=== PATIENT | female | born 1980 | race Caucasian/White ===

== ENCOUNTER 2018-10-19 20:06 | Emergency (ER) | payer BC ==
[2018-10-19 20:12] VITALS: BP 140/92
--- NOTE | 2018-10-19 20:37 | XRAY Report ---
Reason: Injury/a metal sprinler fell onto L foot. Procedure Date: 10/19/2018 Accession Number: [id number] / [id number] Procedure: XR - Foot 3 View LT CPT Code: FULL RESULT: EXAM: LEFT FOOT RADIOGRAPHY EXAM DATE: 10/19/2018 08:24 PM. CLINICAL HISTORY: Injury/a metal sprinler fell onto L foot. COMPARISON: None. TECHNIQUE: 3 views. FINDINGS: Bones: No acute fractures or suspicious bone lesions. Joints: No subluxations. Soft Tissues: Unremarkable. IMPRESSION: No acute radiographic abnormalities. RADIA
--- NOTE | 2018-10-19 20:52 | ED Physician Documentation ---
PD HPI LOWER EXT INJURY - Stated complaint Stated Complaint: FOOT INJURY - Chief complaint Chief Complaint: Laceration - History obtained from History obtained from: Patient - History of Present Illness PD HPI LOW EXT INJURY LOCATION: Left, Foot Type of injury: Blunt / blow Where injury occurred: Home Timing - onset: Today Severity Comments: moderate Improved by: Rest, Ice, Immobilization Worsened by: Moving Associated symptoms: Swelling Contributing factors: No: Anticoagulated Similar symptoms before: Has not had sx before Recently seen: Not recently seen Review of Systems Constitutional: denies: Fever Eyes: denies: Discharge Cardiac: denies: Chest pain / pressure GI: denies: Abdominal Pain Musculoskeletal: reports: Extremity pain Neurologic: denies: Head injury PD PAST MEDICAL HISTORY - Past Medical History Past Medical History: Yes Cardiovascular: None Respiratory: None Neuro: None Endocrine/Autoimmune: None GI: None EQUIPMENT TECHNICIAN: None : None HEENT: None Psych: None Musculoskeletal: None Derm: None - Past Surgical History Past Surgical History: Yes HEENT: Tonsil/Adenoidectomy - Allergies Allergies/Adverse Reactions: Allergies Allergy/AdvReac Type Severity Reaction Status Date / Time Sulfa (Sulfonamide Allergy Hives Verified 10/19/18 20:09 Antibiotics) - Social History Does the pt smoke?: No Smoking Status: Never smoker Does the pt drink ETOH?: Yes ETOH Use: Wine Does the pt have substance abuse?: No - Immunizations Immunizations are current?: Yes - POLST Patient has POLST: No PD ED PE NORMAL - General General: Alert and oriented X 3, No acute distress - HEENT HEENT: Atraumatic, PERRL, EOMI, Ears normal - Derm Derm: Normal color - Neuro Neuro: Alert and oriented X 3 - Psych Psych: Normal affect PD ED PE EXPANDED - Extremities FRANCINE LE visual: 1 - tenderness (Mild abrasion, tenderness to palpation with bruising. No crepitus. Normal dorsalis pedis pulse and normal cap refill. No tenderness of the ankle or proximal fibular head) Results - Vitals Vitals: Vital Signs - 24 hr 10/19/18 20:09 Temperature 36.2 C L Heart Rate 99 Respiratory 16 Rate Blood Pressure 140/92 H O2 Saturation 98 Oxygen O2 Source Room air - Rads (name of study) foot XR Radiology: Final report received, See rad report PD MEDICAL DECISION MAKING - ED course ED course: No acute fracture on x-ray, the patient reports being able to bear weight and declines crutches. The patient appears appropriate for discharge and conservative outpatient management I advised follow-up with primary care. I discussed warning signs and recommended returning for any worsening or any concerns Departure - Departure Disposition: 01 Home, Self Care Clinical Impression: Foot contusion Qualifiers: Encounter type: initial encounter Laterality: unspecified laterality Qualified Code(s): S90.30XA - Contusion of unspecified foot, initial encounter Condition: Good Instructions: ED Contusion Foot Comments: Please follow-up with primary care for recheck. Please return to the emergency department immediately for any worsening or any concerns
== END 2018-10-19 20:56 | disposition home or self-care (01) ==
LOC: ED 20:06
DX: S90.30XA Contusion of unspecified foot, initial encounter (principal); W01.0XXA Fall on same level from slipping, tripping and stumbling without subsequent striking against object, initial encounter; Y92.009 Unspecified place in unspecified non-institutional (private) residence as the place of occurrence of the external cause
CPT/HCPCS: 99282; 99283